=== PATIENT | male | born 1945 | race Caucasian/White ===

== ENCOUNTER 2022-03-29 09:09 | Emergency (ER) | payer OTHER ==
--- OUTSIDE RECORDS SUMMARY | 2022-03-29 09:15 | XMS REPORT | Continuity of Care Document ---
:1945 Author Organization [facility] t Address [address] [place] [address] Dr. Wilcox [address] [place] [id number] Care Team Providers Name Role Phone Unavailable Unavailable Unavailable Problems This patient has no known problems. Allergies, Adverse Reactions, Alerts This patient has no known allergies or adverse reactions. Medications This patient has no known medications. Procedures This patient has no known procedures. Results This patient has no known results.
[2022-03-29 09:47] LABS: Absolute Lymphocytes (CBC) 1.3 K/uL (0.7-4.9); Hematocrit 44.4 % (39.6-49.0); Lymphocytes % 17.5 % (15.3-44.8); MCV 93.7 fL (80-100); MPV 7.1 fL (7.6-11.3); RBC Red Blood Cell Count 4.73 M/uL (4.33-5.43)
[2022-03-29 09:57] LABS: Urine Blood 3+ (Negative); Urine Glucose Negative (Negative); Urine Protein 2+ (Negative); Urine pH 5.5 (5.0-7.0)
[2022-03-29 10:04] LABS: Albumin 3.6 g/dL (3.4-5.0); Bilirubin Total 0.5 mg/dL (0.2-1.0); Potassium 4.4 mmol/L (3.5-5.1)
[2022-03-29 10:08] LABS: Urine Bacteria None Seen /HPF (<20); Urine RBC >50 /HPF (None Seen)
--- NOTE | 2022-03-29 10:29 | RAD REPORT ---
EXAM DESCRIPTION: CT - Stone Protocol - 03/29/2022 10:20 am CLINICAL HISTORY: Flank pain. hematuria COMPARISON: No comparisons TECHNIQUE: Axial images were obtained without oral or IV contrast. Lack of contrast limits solid org an and vascular assessment. The [id number] spans the entirety of the system partially obscuring uppermost abdomen and lung bases. Coronal reformatted images were obtained and reviewed. All CT scans are performed using dose optimization technique as appropriate and may include automated exposure control or mA/KV adjustment according to patient size. FINDINGS: The lower lung castillo are clear. Imaged portions of the liver and spleen show no suspicious findings on non-contrast imaging. The panc reas and adrenal glands are normal. No pathologic lymphadenopathy in the abdomen or pelvis. No urinary tract stones or obstructive uropathy. No bowel obstruction, free air, free fluid or abscess. Normal appendix noted.32 mm infrarenal abdomin al aortic aneurysm. Moderate aortic and branch vessel atherosclerosis. No significant bony abnormality. 33 mm soft tissue mass along the right aspect of the urinary bladder is noted. IMPRESSION: There is a 33 cm soft tissue mass suspected on right posterolateral bladder wall likely neoplastic in etiology. Recommend follow-up cystoscopy.
[2022-03-29] MEDS ORDERED: CEFTRIAXONE 2000 MG/VIAL ONE (11:03)
--- NOTE | 2022-03-29 11:54 | ER ---
Nurse's Notes [facility] Name: Francisco Hyde Jr Age: 76 yrs Sex: Male : 1945 Arrival Date: 03/29/2022 Time: 09:13 Bed 7 Private MD: Balbir Aly Diagnosis: UTI/ Urinary tract infection, site not specified;Hematuria, unspecified;Bladder Mass Presentation: 03/29 09:21 Chief complaint: Blood in urine and suprapubic pain upon waking today. Coronavirus hb screen: At this time, the client does not indicate any symptoms associated with coronavirus-19. Ebola Screen: No symptoms or risks identified at this time. Initial Sepsis Screen: Does the patient meet any 2 criteria? No. Patient's initial sepsis screen is negative. Does the patient have a suspected source of infection? No. Patient's initial sepsis screen is negative. Risk Assessment: Do you want to hurt yourself or someone else? Patient reports no desire to harm self or others. Onset of symptoms was March 29, 2022. 09:21 Method Of Arrival: Ambulatory hb 09:21 Acuity: CHANEL 3 hb Historical: - Allergies: 09:22 PENICILLINS; hb - PMHx: 09:22 Hyperlipidemia; Hypertension; hb - Immunization history:: Adult Immunizations unknown. - Social history:: Smoking status: unknown. Screenin:28 [facility] ED Fall Risk Assessment (Adult) History of falling in the last 3 months, kc6 including since admission No falls in past 3 months (0 pts) Confusion or Disorientation No (0 pts) Intoxicated or Sedated No (0 pts) Impaired Gait No (0 pts) Mobility Assist Device Used No (0 pt) Altered Elimination No (0 pt) Score/Fall Risk Level 0 - 2 = Low Risk Oriented to surroundings, Maintained a safe environment, Educated pt \T\ family on fall prevention, incl call for assistance when getting out of bed, Assessed \T\ reinforced patient's understanding of fall precautions, Hourly rounding (assess needs \T\ fall precautionary measures) done. Abuse screen: Denies threats or abuse. Denies injuries from another. Nutritional screening: No deficits noted. Tuberculosis screening: No symptoms or risk factors identified. Assessment: 09:27 General: Appears in no apparent distress. comfortable, Behavior is calm, cooperative, kc6 appropriate for age. Pain: Denies pain. Neuro: [place] Agitation-Sedation Scale (RASS): 0 - Alert and Calm Level of Consciousness is awake, alert, obeys commands, Oriented to person, place, time, situation, Appropriate for age. Cardiovascular: Heart tones S1 S2 present Capillary refill < 3 seconds. Respiratory: Airway is patent Trachea midline Respiratory effort is even, unlabored, Respiratory pattern is regular, symmetrical, Breath sounds are clear bilaterally. GI: No signs and/or symptoms were reported involving the gastrointestinal system. : Reports blood in the urine. EENT: No signs and/or symptoms were reported regarding the EENT system. Derm: No signs and/or symptoms reported regarding the dermatologic system. Skin is intact, Skin is pink, warm \T\ dry. Musculoskeletal: No signs and/or symptoms reported regarding the musculoskeletal system. Circulation, motion, and sensation intact. Capillary refill < 3 seconds, Range of motion: intact in all extremities. 10:27 Reassessment: Patient appears in no apparent distress at this time. No changes from kc6 previously documented assessment. Patient and/or family updated on plan of care and expected duration. Pain level reassessed. Patient is alert, oriented x 3, equal unlabored respirations, skin warm/dry/pink. Patient denies pain at this time. 11:27 Reassessment: Patient appears in no apparent distress at this time. No changes from kc6 previously documented assessment. Patient and/or family updated on plan of care and expected duration. Pain level reassessed. Patient is alert, oriented x 3, equal unlabored respirations, skin warm/dry/pink. Patient denies pain at this time. Reassessment: Patient appears in no apparent distress at this time. No changes from previously documented assessment. Patient and/or family updated on plan of care and expected duration. Pain level reassessed. Patient is alert, oriented x 3, equal unlabored respirations, skin warm/dry/pink. Patient denies pain at this time. Vital Signs: 09:21 BP 166 / 72; Pulse 59; Resp 16; Temp 98.3; Pulse Ox 98% on R/A; Weight 59.87 kg; Height hb 5 ft. 6 in. (167.64 cm); Pain 1/10; 10:01 BP 168 / 91; Pulse 50; Resp 15; Pulse Ox 98% ; jl7 11:01 BP 147 / 59; Pulse 52; Resp 16 S; Pulse Ox 99% on R/A; Pain 0/10; kc6 12:01 BP 143 / 62; Pulse 49; Resp 18 S; Pulse Ox 99% on R/A; Pain 0/10; kc6 09:21 Body Mass Index 21.31 (59.87 kg, 167.64 cm) hb ED Course: 09:13 Patient arrived in ED. am2 09:14 Balbir Aly MD is Private Physician. am2 09:17 Basim Ortega PA is PHCP. jmm 09:17 David Peña MD is Attending Physician. jmm 09:19 Suma Tinajero, RN is Primary Nurse. kc6 09:22 Triage completed. hb 09:23 Arm band placed on. hb 09:28 Patient has correct armband on for positive identification. Bed in low position. Call kc6 light in reach. Side rails up X 1. Adult w/ patient. 09:41 CBC with Diff Sent. kc6 09:41 CMP Sent. kc6 09:41 Lipase Sent. kc6 09:41 Inserted saline lock: 20 gauge in right antecubital area, using aseptic technique. kc6 Blood collected. 09:54 Primary Nurse role handed off by Suma Tinajero, RN kc6 09:55 Suma Tinajero, RN is Primary Nurse. kc6 09:56 Urine Culture Sent. kc6 09:56 Urine Microscopic Only Sent. kc6 10:22 CT Stone Protocol In Process Unspecified. EDMS 11:54 Raj Cleary MD is Referral Physician. m 12:25 No provider procedures requiring assistance completed. IV discontinued, intact, kc6 bleeding controlled, No redness/swelling at site. Pressure dressing applied. Administered Medications: 11:08 Drug: Rocephin (cefTRIAXone) 2 grams Route: IV; Rate: calculated rate; Site: right kc6 antecubital; 12:25 Follow up: Response: No adverse reaction; IV Status: Completed infusion; IV Intake: [id number] Medication: 12:26 VIS not applicable for this client. kc6 Intake: 12:25 IV: 10ml; Total: 10ml. kc6 Outcome: 11:54 Discharge ordered by . jmm 12:25 Discharged to home ambulatory, with family, with significant other. kc6 12:25 Condition: stable 12:25 Discharge instructions given to patient, family, significant other, Instructed on discharge instructions, follow up and referral plans. medication usage, Demonstrated understanding of instructions, follow-up care, medications, Prescriptions given X 1. 12:26 Patient left the ED. kc6 Signatures: Dispatcher [employer] EDMS Basim Ortega PA PA jmm Baxter, Heather, RN RN hb Leal, Jahala, RN RN jl7 Manisha Wallis Kaitlyn, RN RN kc6
--- NOTE | 2022-03-29 11:55 | EDPHYS ---
Physician Documentation [facility] Name: Francisco Hyde Jr Age: 76 yrs Sex: Male : 1945 Arrival Date: 03/29/2022 Time: 09:13 Bed 7 Private MD: Balbir Aly ED Physician David Peña HPI: 03/29 09:28 This 76 yrs old Male presents to ER via Ambulatory with complaints of blood in urine. jmm 09:28 The patient presents with urinary symptoms. Onset: The symptoms/episode began/occurred jmm gradually, today. Modifying factors: The symptoms are alleviated by nothing, the symptoms are aggravated by nothing. This is a 76 year old male with a history of hlp, htn that presents to the ED with complaints of hematuria beginning today with some suprapubic abdominal pain. Denies fever, vomiting, back pain. . Historical: - Allergies: 09:22 PENICILLINS; hb - PMHx: 09:22 Hyperlipidemia; Hypertension; hb - Immunization history:: Adult Immunizations unknown. - Social history:: Smoking status: unknown. ROS: 09:28 Constitutional: Negative for fever, chills, and weight loss, Cardiovascular: Negative jmm for chest pain, palpitations, and edema, Respiratory: Negative for shortness of breath, cough, wheezing, and pleuritic chest pain. 09:28 Abdomen/GI: Positive for abdominal pain. 09:28 : Positive for urinary symptoms. 09:28 All other systems are negative. Exam: 09:28 Constitutional: This is a well developed, well nourished patient who is awake, alert, jmm and in no acute distress. Head/Face: atraumatic. Eyes: EOMI, no conjunctival erythema appreciated ENT: Moist Mucus Membranes Neck: Trachea midline, Supple Chest/axilla: Normal chest wall appearance and motion. Cardiovascular: Regular rate and rhythm. No edema appreciated Respiratory: Normal respirations, no respiratory distress appreciated 09:28 Skin: General appearance color normal MS/ Extremity: Moves all extremities, no obvious deformities appreciated, no edema noted to the lower extremities Neuro: Awake and alert Psych: Behavior is normal, Mood is normal, Patient is cooperative and pleasant 09:28 Abdomen/GI: Inspection: abdomen appears normal, Bowel sounds: normal, Palpation: soft, mild abdominal tenderness, in the suprapubic area. 09:28 Back: CVA tenderness, is absent, is noted bilaterally. Vital Signs: 09:21 BP 166 / 72; Pulse 59; Resp 16; Temp 98.3; Pulse Ox 98% on R/A; Weight 59.87 kg; Height hb 5 ft. 6 in. (167.64 cm); Pain 1/10; 10:01 BP 168 / 91; Pulse 50; Resp 15; Pulse Ox 98% ; jl7 11:01 BP 147 / 59; Pulse 52; Resp 16 S; Pulse Ox 99% on R/A; Pain 0/10; kc6 12:01 BP 143 / 62; Pulse 49; Resp 18 S; Pulse Ox 99% on R/A; Pain 0/10; kc6 09:21 Body Mass Index 21.31 (59.87 kg, 167.64 cm) hb MDM: 09:28 Patient medically screened. [facility] 11:53 Data reviewed: vital signs, nurses notes. Counseling: I had a detailed discussion with [facility] the patient and/or guardian regarding: the historical points, exam findings, and any diagnostic results supporting the discharge/admit diagnosis, lab results, radiology results, the need for outpatient follow up, to return to the emergency department if symptoms worsen or persist or if there are any questions or concerns that arise at home. 11:53 ED course: Patient is alert and non toxic in appearance in the ED. Patient given IV [facility] antibiotics. I discussed the patient with Dr. Cleary whom will follow up with the patient. Patient is otherwise given strict return precautions. patient understood and agrees with the plan of care. . 03/29 09:28 Order name: CBC with Diff; Complete Time: 09:59 [facility] 03/29 09:28 Order name: CMP; Complete Time: 10:09 [facility] 03/29 09:28 Order name: Lipase; Complete Time: 10:09 [facility] 03/29 09:28 Order name: Urine Microscopic Only; Complete Time: 10:23 [facility] 03/29 09:28 Order name: Urine Culture [facility] 03/29 09:57 Order name: Urine Dipstick-Ancillary; Complete Time: 09:59 [facility] 03/29 09:28 Order name: IV Saline Lock; Complete Time: 09:41 [facility] 03/29 09:28 Order name: Labs collected and sent; Complete Time: 09:41 [facility] 03/29 09:28 Order name: Urine Dipstick-Ancillary (obtain specimen); Complete Time: 09:56 [facility] 03/29 09:29 Order name: CT Stone Protocol; Complete Time: 10:38 [facility] Administered Medications: 11:08 Drug: Rocephin (cefTRIAXone) 2 grams Route: IV; Rate: calculated rate; Site: right kc6 antecubital; 12:25 Follow up: Response: No adverse reaction; IV Status: Completed infusion; IV Intake: [id number] Disposition: 15:10 Co-signature as Attending Physician, David Peña MD. rn Disposition Summary: 03/29/22 11:54 Discharge Ordered Location: Home [facility] Condition: Stable jm Diagnosis - UTI/ Urinary tract infection, site not specified jmm - Hematuria, unspecified jmm - Bladder Mass [facility] Followup: [facility] - With: Raj Cleary MD - When: 1 - 2 days - Reason: Recheck today's complaints, Continuance of care, Re-evaluation by your physician Discharge Instructions: - Discharge Summary Sheet jm - Hematuria, Adult jmm - Urinary Tract Infection, Adult jm - Bladder Cancer [facility] Forms: - Medication Reconciliation Form [facility] - Thank You Letter [facility] - Antibiotic Education [facility] - Prescription Opioid Use [facility] Prescriptions: - cefpodoxime 200 mg Oral Tablet - take 1 tablet by ORAL route every 12 hours with food; 20 tablet; Refills: 0, [facility] Product Selection Permitted Signatures: Dispatcher [employer] EDBasim Escalera PA PA David Melton MD MD rn Baxter, Heather, RN RN hb Campbell, Kaitlyn, RN RN kc6
[2022-03-29 13:07] VITALS: TEMP 98.3
[2022-03-29 13:09] VITALS: O2SAT 99
[2022-03-29 13:10] VITALS: BP 143/62
== END 2022-03-29 12:26 | disposition home or self-care (01) ==
LOC: ER 09:09
DX: N39.0 Urinary tract infection, site not specified (principal); N32.89 Other specified disorders of bladder; I10 Essential (primary) hypertension; E78.5 Hyperlipidemia, unspecified; Z88.0 Allergy status to penicillin
CPT/HCPCS: 96365; 87088; 85025; 87086; 36415; 83690; 80053; 76377; 74176; 99284; J0696; 81003; 81015

== ENCOUNTER 2022-05-05 11:25 | Observation (INO) | payer OTHER ==
[2022-04-23 11:51] LABS: Absolute Lymphocytes (CBC) 1.8 K/uL (0.7-4.9); Hematocrit 48.5 % (39.6-49.0); Lymphocytes % 21.5 % (15.3-44.8); MCV 94.9 fL (80-100); MPV 7.8 fL (7.6-11.3); Protime INR 1.06; RBC Red Blood Cell Count 5.11 M/uL (4.33-5.43)
--- NOTE | 2022-04-23 11:56 | RAD REPORT ---
EXAM DESCRIPTION: RAD - Chest Pa And Lat (2 Views) - 04/23/2022 11:34 am CLINICAL HISTORY: pre op for surgery COMPARISON: Portable 12/23/2012 TECHNIQUE: Frontal and lateral views of the chest were obtained. FINDINGS: The lungs are clear of a focal abnormality. Interstitial pattern not outside of normal ran ge. No hilar mass or lymphadenopathy suspected. Minimal scarring changes at each apex. Heart size is normal and central vasculature is within normal limits. No pleural effusion or pneu mothorax seen. No acute bony finding noted. No aortic abnormality. IMPRESSION: No acute cardiopulmonary process. No significant change from comparison study.
[2022-04-23 12:04] LABS: Potassium 3.9 mmol/L (3.5-5.1)
[~2022-05-05 11:25] MED LIST: CLINDAMYCIN 600MG/D5W 50 ML IV SCH; GEMCITABINE HCL 200 MG/5.26 ML VIAL IS ONE; GEMCITABINE HCL 26.3 ML IS ONE
[2022-05-05] MEDS ORDERED: Ringers Lactate 1,000 ML IV ONE (12:34)
[2022-05-05] MEDS ORDERED: LIDOCAINE 1% MPF 5 ML VIAL ONE (16:18)
[2022-05-05] MEDS ORDERED: MIDAZOLAM HCL 2 MG/2 ML INJ ONE ×2 (16:18→17:28)
[2022-05-05] MEDS ORDERED: FENTANYL CITR 100 MCG/2 ML ONE ×2 (16:18→17:15)
[2022-05-05] MEDS ORDERED: propofoL 200 MG/20 ML VIAL IV ONE (16:18)
[2022-05-05] MEDS ORDERED: ONDANSETRON 4 MG/2 ML VIAL ONE (16:22)
[2022-05-05] MEDS ORDERED: CODEINE 30MG/APAP 300MG TAB PO PRN ×2 (16:38→20:09)
[2022-05-05] MEDS ORDERED: PHENAZOPYRIDINE 100MG TAB PO ONE (16:38)
[2022-05-05] MEDS ORDERED: GLYCOPYRROLATE 0.2 MG/ML SYR ONE ×2 (16:39→17:28)
[2022-05-05] MEDS ORDERED: ROCURONIUM 50 MG/5 ML VIAL IV ONE ×2 (16:52→17:15)
[2022-05-05] MEDS ORDERED: EPHEDRINE SULF 50 MG/ML VIAL ONE (16:55)
[2022-05-05] MEDS ORDERED: dexAMETHasone 10 MG/ML VIAL ONE (17:20)
[2022-05-05] MEDS ORDERED: NEOSTIGMINE 1 MG/ML -10 ML VIAL ONE (17:31)
[2022-05-05] MEDS: Gentamicin Inj 140 MG in NA CHLORIDE 0.9% 100 ML IV SCH ×2 (17:39→17:41)
--- NOTE | 2022-05-05 17:54 | EKG ---
Test Date: 2022-04-23 Test Time: 11:17:04 Load Test Mechanic: VENKAT MEASUREMENT RESULTS: Intervals: Rate: 51 WI: 158 QRSD: 90 QT: 438 QTc: 403 Mutual: P: 79 WI: 158 QRS: 85 T: 85 INTERPRETIVE STATEMENTS: Sinus bradycardia Otherwise normal ECG Compared to ECG 12/23/2012 06:52:26 Sinus rhythm no longer present Electronically Signed On 05-05-22 17:31:20 [employer]ISION [employer]SEM[employer] INSPECTOR by Neal Rico
[2022-05-05] MEDS ORDERED: FLUMAZENIL 0.1 MG/ML (5 mL VIAL) IV ONE (17:58)
[2022-05-05] MEDS ORDERED: NALOXONE 0.4 MG/ML VIAL ONE ×2 (18:05→18:06)
[2022-05-05] MEDS ORDERED: SUCCINYLCHOLINE 20 MG/ML (10 ML) IV ONE (18:21)
--- NOTE | 2022-05-05 18:35 | OP ---
Surgeon: MALINDA GATICA Preoperative Diagnosis: Right lateral wall papillary urothelial neoplasm/bladder tumor. Postoperative Diagnosis: Right lateral wall papillary urothelial neoplasm/bladder tumor. Principal Procedures: 1. Transurethral resection of bladder tumor. 2. Insertion of urethral French catheter. 3. Intravesical instillation of gemcitabine 2 g in 50 cc normal saline, chemotherapy. Findings: Large 5-7 cm right lateral wall papillary urothelial neoplasm consistent with bladder cancer. Specimens: 1. Bladder tumor, right lateral wall. 2. Base of right lateral wall bladder tumor. Indication For Procedure: Mr. Hyde is a 77-year-old gentleman, who presented with gross hematuria and a 3.3 cm bladder mass suspected on CT confirmed cystoscopically 04/08/2022 in the setting of [id number] non-bothersome lower urinary symptoms, potentially due to BPH. He was counseled on the need for management of the large bladder tumor and recommended also to receive intravesical gemcitabine to reduce the risk of recurrence and reimplantation of the circulating tumor cells. Procedure In Detail: The patient was consented in the preoperative holding area before being transferred to operative suite where general anesthesia was induced. He was given clindamycin and gentamicin 2-3 mg/kg IV antimicrobial prophylaxis. Pneumo boots were provided for DVT prophylaxis. He was placed in the lithotomy position, padded and secured to the table appropriately. His genitalia were prepped with Hibiclens and he was draped in standard fashion. The case begun using urethral sounds to dilate the meatus and fossa navicularis to 30-Indian. Then, using the visual obturator and a 26-Indian bipolar resectoscope as well as a visual obturator, the scope was used to traverse the urethra and into the bladder with ease. The bladder was decompressed of fluid and urine, and the tumor was observed in the right lateral wall posteriorly as had previously been described. The remainder of the bladder was free of mucosal lesions, foreign body, or stone. The ureteral orifices were orthotopic in location. As a result, I began using a thin bipolar resection loop to resect the papillary component of the tumor, which was extensive as the tumor was approximately 5-7 cm in diameter, and resected it down to the base of the tumor which was covering an area of approximately 2-3 cm in diameter. Once the papillary component of the tumor had been removed and I was down to the base, I then tried to use as minimal cautery as possible to resect the tumor from the base muscular structures and the second set of resection was sent for pathologic analysis as base of tumor. I then carefully fulgurated the entirety of the base and resected additional nodular component of tissue that was just peripheral to the area of resection where the papillary tumor was growing suspecting a degree of submucosal tumor proliferation or induration. This was all sent as base of tumor. Once the resection was complete and the base completely fulgurated with no residual bleeding with bladder completely decompressed, I then irrigated his bladder and Ellik evacuated any remaining vesiculated tumor cells or tumor fragments and then placed a 20-Indian urethral French catheter with ease into his bladder with 25 cc of sterile water in the balloon. I decompressed his bladder and then retrograde instilled gemcitabine 2 g in 50 cc normal saline. He was then toweled off to prevent exposure of his surrounding genitalia and skin with the gemcitabine, and the catheter was connected to a leg bag while being clamped using a Olinda clamp. He was then taken out of the lithotomy position. While being awakened from general anesthesia, he failed to respond appropriately and had some involuntary appearing movements. Adequate consciousness was not obtained, and he was not respiring adequately on his own. As a result, continued mask ventilation was required, eventually transferred to repeat placement of the LMA, before eventually an endotracheal tube was placed. He was then transferred to a stretcher, and because of concern for CVA, he was transferred directly to the CT scanner for CT of the head/brain without contrast. Please see follow-up note/care for details before patient was ultimately transferred intubated to PACU. Complications: None. Discharge Disposition: He will maintain the chemotherapy intravesically for the next 60-90 minutes targeting a total of 90 minutes of therapy if possible. We will discharge him home with a catheter and recommend follow up on for a voiding trial in the Urology Clinic. He may also remove the catheter at home on morning at 7 a.m. and as long as he voids with ease by 1 p.m., he may avoid having to come to the office for a voiding trial. Subsequent followup should be established in about 2-3 weeks' time to discuss the results of the pathology and determine next steps. NUNO/MARIE Voice ID: [id number] Report ID: [id number] JOSE
--- NOTE | 2022-05-05 18:40 | RAD REPORT ---
EXAM DESCRIPTION: CT - Ct Stroke Brain Wo Cont - 05/05/2022 6:32 pm CLINICAL HISTORY: CVA- inappropriate responsiveness p anesthesia Headache, drowsiness COMPARISON: No comparisons TECHNIQUE: All CT scans are performed using dose optimization technique as appropriate and may inclu de automated exposure control or mA/KV adjustment according to patient size. FINDINGS: No intracranial hemorrhage, hydrocephalus or extra-axial fluid collection.No areas of brai n edema or evidence of midline shift. Superior sagittal sinus appears somewhat dense. The paranasal sinuses and mastoids are clear. The calvarium is intact. IMPRESSION: No acute hemorrhage, hydrocephalus or midline shift. Mild increased density superior sagittal sinus could be artifactual or related to thrombosis. Recomme nd CT angiogram of the head for further evaluation. The findings were discussed with Dr. Cleary On 05/05/2022 at 6:35 p.m. by telephone.
--- NOTE | 2022-05-05 18:52 | RAD REPORT ---
EXAM DESCRIPTION: CT - Head angio - 05/05/2022 6:45 pm CLINICAL HISTORY: UNRESPONSIVE Headache, drowsiness COMPARISON: Ct Stroke Brain Wo Cont dated 05/05/2022; Abdomen Exam Complete dated 01/31/2021; Neck An taylor dated 05/05/2022 TECHNIQUE: CT angiography of the head was performed with MIPs. All CT scans are performed using dose optimization technique as appropriate and may include automated exposure control or mA/KV adjustment according to patient size. FINDINGS: No evidence of large vessel occlusion. No evidence of aneurysm is detected. No flow-limiti ng stenosis or vascular malformation identified. Antegrade flow is seen in the vertebral arteries. The vertebral arteries are codominant. The visualized dural venous sinuses are patent. IMPRESSION: No significant flow abnormality is detected.
--- NOTE | 2022-05-05 18:54 | RAD REPORT ---
EXAM DESCRIPTION: CT - Neck Angio - 05/05/2022 6:45 pm CLINICAL HISTORY: UNRESPONSIVE Headache, drowsiness COMPARISON: No comparisons TECHNIQUE: CT angiography of the neck vessels was performed with MIPs. All CT scans are performed using dose optimization technique as appropriate and may include automated exposure control or mA/KV adjustment according to patient size. FINDINGS: The lower lung castillo are emphysematous. ET tube tip is not within the field scanning. A left aortic arch is identified with normal three vessel configuration of the great vessels. No significant flow abnormality is seen of the common carotid bilaterally. Moderate hard plaque is seen involving the carotid bulbs bilaterally. Carotid stenosis estimated at 7 0% on the left based on NASCET criteria. Carotid narrowing estimated at 50% on the right based on RITU CET criteria. Normal flow is seen within both vertebral arteries. IMPRESSION: Hard plaquing both carotid bulbs is moderate and results moderate stenosis bilaterally, slightly greater on the left. No additional significant flow abnormality seen.
[2022-05-05 19:31] LABS: Arterial Blood Carboxyhemoglob 0.9 % (0-1.5); Blood Gas Oxyhemoglobin 97.1 % (94-97); Blood O2 Saturation 99.4 % (92-98.5)
[2022-05-05 19:34] LABS: Absolute Lymphocytes (CBC) 1.7 K/uL (0.7-4.9); Hematocrit 47.3 % (39.6-49.0); Lymphocytes % 11.1 % (15.3-44.8); MCV 94.2 fL (80-100); MPV 7.3 fL (7.6-11.3); RBC Red Blood Cell Count 5.02 M/uL (4.33-5.43)
--- NOTE | 2022-05-05 19:34 | RAD REPORT ---
EXAM DESCRIPTION: RAD - Chest Single View - 05/05/2022 7:23 pm CLINICAL HISTORY: INTUBATED TUBE PLACEMENT Chest pain. COMPARISON: Chest Pa And Lat (2 Views) dated 04/23/2022; CHEST SINGLE VIEW dated 12/23/2012; CHEST SING LE VIEW dated 12/22/2012; Abdomen Pelvis W Contrast dated 04/03/2022 FINDINGS: Portable technique limits examination quality. Tip of the ET tube is above the joe at the level of the superior aortic arch. Mildly emphysematous lung castillo. No focal infiltrate seen.Cardiac size is upper limit of normal.
[2022-05-05 19:45] LABS: SARS-CoV-2 Antigen Rapid Res Negative (Negative)
[2022-05-05 19:52] LABS: Albumin 4.1 g/dL (3.4-5.0); Bilirubin Total 0.8 mg/dL (0.2-1.0); Potassium 4.5 mmol/L (3.5-5.1); Protein, Total 7.3 g/dL (6.4-8.2)
[2022-05-05] MEDS ORDERED: NA CHLORIDE 0.9% 1,000 ML IV SCH (20:05)
[2022-05-05] MEDS ORDERED: ONDANSETRON 4 MG/2 ML VIAL IV PRN (20:05)
[2022-05-05] MEDS ORDERED: LORazepam 2 MG/ML VIAL IV PRN (20:05)
[2022-05-05] MEDS ORDERED: propofoL 1,000 MG/100 ML VIAL IV SCH (20:05)
--- OUTSIDE RECORDS SUMMARY | 2022-05-05 20:06 | XMS REPORT | Continuity of Care Document ---
:[address] [facility] t Address [address] [place] [address] Care Team Providers Name Role Phone Balbir Aly Attending Clinician Unavailable Payers Payer Name Policy Type Policy Number Effective Date Expiration Date S cele [employer] MEDICARE 53 [id number] Common S pirit PPO [facility] Problems Condition Condition Condition Status Onset Resolution Last Treating Co mments Source Name Details Category Date Date Treatment Clinician Date [id number] Renal mass Problem Co mmon [facility] [id number] Bladder Problem Commo n mass [facility] [id number] BPH loc w Problem Com mon urin Spirit obs/LUTS [facility] [id number] Gross Problem Common hematuria [facility] Allergies, Adverse Reactions, Alerts Allergy Allergy Status Severity Reaction(s) Onset Inactive Treating Comm ents Source Name Type Date Date Clinician penicill penicill Active Unknown Commo n in V in V [facility] Social History Social Habit Start Date Stop Date Quantity Comments Source History of Tobacco Current Smoker Co mmon [facility] Use [facility] Sex Assigned At Com mon [facility] Smoking Status Start Date Stop Date Source Current Smoker 2022-04-08 00:00:00 Common Spiri t [facility] Medications Ordered Filled Start Stop Current Ordering Indication Dosage Frequency Signature Comments Components Source Medication Medication Date Date Medication? Clinician (SIG) Name Name No Known No Known No Common Medications Medications [facility] Vital Signs Vital Name Observation Time Observation Value Comments Source height 2022-04-08 15:00:00 66 [in_i] Common [facility] weight 2022-04-08 15:00:00 137.8 [lb_av] [facility] temperature 2022-04-08 15:00:00 98.6 [degF] Common [facility] bmi 2022-04-08 15:00:00 22.24 kg/m2 [facility] oximetry 2022-04-08 15:00:00 98 % [facility] respiratory rate 2022-04-08 15:00:00 16 /min Comm on [facility] blood pressure 2022-04-08 15:00:00 165 mm[Hg] [facility] systolic [facility] blood pressure 2022-04-08 15:00:00 77 mm[Hg] [facility] diastolic [facility] height 2022-04-01 10:15:00 66 [in_i] [facility] weight 2022-04-01 10:15:00 138.8 [lb_av] [facility] temperature 2022-04-01 10:15:00 98.2 [degF] [facility] bmi 2022-04-01 10:15:00 22.4 kg/m2 [facility] oximetry 2022-04-01 10:15:00 99 % [facility] respiratory rate 2022-04-01 10:15:00 18 /min Comm on [facility] blood pressure 2022-04-01 10:15:00 147 mm[Hg] [facility] systolic [facility] blood pressure 2022-04-01 10:15:00 70 mm[Hg] [facility] diastolic [facility] Procedures This patient has no known procedures. Encounters Start End Encounter Admission Attending Care Care Encounter Source Date/Time Date/Time Type Type Clinicians Facility Department ID 2022-04-01 Outpatient JLUIS Aly [facility] [id number] 2 Common 10:07:05 Balbir [id number] Spirit [facility] 2022-04-08 2022-04-08 [facility] [id number] Co mmon 00:00:00 00:00:00 VISIT Gui DE PAZ [facility] - [facility] LEVEL 4 [facility] 2022-04-01 2022-04-01 [facility] [id number] Co mmon 00:00:00 00:00:00 VISIT GINA [facility] PT LEVEL 3 - [facility] Results This patient has no known results.
[2022-05-05] MEDS ORDERED: propofoL 1,000 MG/100 ML VIAL IV ONE (20:21)
--- NOTE | 2022-05-05 20:29 | P.HP ---
Certification for Inpatient Patient admitted to: Inpatient With expected LOS: >2 Midnights Patient will require the following post-hospital care: None Practitioner: I am a practitioner with admitting privileges, knowledge of patient current condition, hospital course, and medical plan of care. Services: Services provided to patient in accordance with Admission requirements found in Title 42 Section 412.3 of the Code of Federal Regulations Patient History Date of Service: 05/05/22 Reason for admission: AMS History of Present Illness: 77-year-old male was brought to the hospital today for an outpatient procedure with urologyDnydia Cleary. He had a transurethral resection of bladder tumor, insertion of French catheter, intravesicular instillation of gemcitabine 2 g and 50 cc normal saline. Patient was found of a large 5 to 7 cm right lateral wall papillary urothelial neoplasm consistent with bladder cancer. Initial plan upon completion of procedure was for outpatient follow-up in urology clinic, voiding trial. After surgery was complete and patient was moved to PACU he was noted that he was not recovering from anesthesia as well as he should have been with increased sedation, not protecting his airway. He was brought down for stat CT of the head without contrast as well as CT head and neck angiogram. CT head showed mild increased density superior sagittal sinus could be artifactual or related to thrombosis recommend CT angiogram of the head for further evaluation. Head CTA showed no significant flow abnormality, CTA of the neck showed hard plaque in both carotid bulbs is moderate and results moderate stenosis bilaterally slightly greater on the left. No additional significant flow abnormality seen. Chest x-ray was also performed which showed the tip of the ET tube is above the joe at the level of the superior aortic arch mildly emphysematous lung castillo. No focal infiltrate, cardiac size is upper limit of normal. Given patient's slow recovery from anesthesia, decreased mentation urology wishes to admit patient for further evaluation and management/stroke rule out. Allergies Penicillins Allergy (Mild, Verified 05/05/22 13:04) Rash Home Medications: Aspirin Chewable [Aspirin Chewable*] 81 mg PO DAILY 12/22/12 Metoprolol Succinate [Toprol Xl*] 100 mg PO DAILY 12/22/12 Amlodipine Besylate 5 mg PO DAILY 04/23/22 Atorvastatin Calcium [Lipitor*] 20 mg PO DAILY 04/23/22 Latanoprost/Pf [Latanoprost 0.005% Eye Drop] 7.5 ml OP DAILY 04/23/22 Pantoprazole [Protonix Tab*] 40 mg PO DAILY 04/23/22 Spironolactone 1 tab PO BID 04/23/22 Codeine/APAP [Tylenol W/Codeine #3 tab] 1 tab PO Q6HP PRN #15 tab 05/05/22 - Past Medical/Surgical History Diabetic: No -: cataracts BL -: strabismus -: HTN -: CAD -: Hyperlipidemia -: tonsillectomy -: eye sx L -: Stent LAD 15 years ago Psychosocial/ Personal History: Patient lives at home with his - Family History Father -: Cancer - Social History Smoking Status: Current every day smoker (Smokes a pipe) Alcohol use: Yes CD- Drugs: No Caffeine use: Yes Place of Residence: Home Review of Systems is unable to be obtained (intubated) Physical Examination - Vital Signs Temperature: 97.4 F Blood Pressure: 137/58 Pulse: 55 Respirations: 20 - Physical Exam General: Alert, In no apparent distress, Oriented x3, Cooperative, Other (Intubated, on vent. Tracking with eyes, moves all extremities) HEENT: Atraumatic, PERRLA, Mucous membr. moist/pink, EOMI, Sclerae nonicteric Neck: Supple Respiratory: Clear to auscultation bilaterally, Normal air movement Cardiovascular: No edema, Regular rate/rhythm, Normal S1 S2 Capillary refill: <2 Seconds Gastrointestinal: Normal bowel sounds, No tenderness Musculoskeletal: No swelling, No tenderness Integumentary: No rashes Neurological: Normal speech, Normal tone, Sensation intact, Normal affect - Studies Laboratory Data (last 24 hrs) 05/05/22 19:24: Sodium 135 L, Potassium 4.5, BUN 12, Creatinine 0.98, Glucose 129 H, Total Bilirubin 0.8, AST 22, ALT 23, Alkaline Phosphatase 81 05/05/22 19:24: WBC 15.70 H, Hgb 15.9, Hct 47.3, Plt Count 286 Assessment and Plan - Plan Assessment: AMS/metabolic encephalopathy Rule out CVA History of CAD Hypertension Hyperlipidemia Plan: AMS/metabolic encephalopathy Altered mental status/increased sedation possibly related to effects of anesthesia. Patient mental status improving significantly at this time, remains on ventilator. Pulmonology consulted for weaning. Rule out CVA CT head without contrast as well as CTA head negative for acute findings, CT angio of the neck showed moderate carotid stenosis greater on the left. Additi onal work-up ordered including MRI, EEG, echocardiogram. Neurology consulted, PT/speech therapy consulted. Aspirin, statin ordered. History of CAD Continue aspirin. Hypertension Continue home medications once appropriate. Hyperlipidemia Continue home medications once appropriate. DVT PPX: Lovenox Code status: Full Discharge Plan: Home Plan to discharge in: 48 Hours - Advance Directives Does patient have a Living Will: No Does patient have a Durable POA for Healthcare: No - Code Status/Comfort Care Code Status Assessed: Yes (Full code) Critical Care: No Time Spent Managing Pts Care (In Minutes): 70
[2022-05-05 22:52] VITALS: BMI 22.0
--- NOTE | 2022-05-05 23:34 | P.PN ---
Date of Service: 05/05/22 77-year-old gentleman with CAD on baby aspirin s/p uncomplicated TURBT plus intravesical gemcitabine chemotherapy with delayed return of consciousness postoperative/post anesthesia with delayed adequate spontaneous respiratory capacity and abnormal movements concerning for possible cerebral process was reintubated after he failed to perspire adequately, and then transferred for CT scan of his head/brain. Review of the noncontrast CT scan revealed no evidence of hemorrhagic stroke or midline shift/herniation. CT angiogram was then recommended and completed without any acute vessel occlusion noted, though some carotid stenosis was indeed found. Patient subsequently transferred back to the PACU intubated and placed on a ventilator, but he became slightly more responsive and was able to breathe spontaneously with pressure support only. Over time, he became much more conscious and was alert and oriented to person. While strength was still deficient for instance in the left upper extremity relative to the right and in the right lower extremity relative to the left, all of these deficits resolved over the course of the next 1 to 2 hours after the patient was transferred to the ICU. He was subsequently extubated by the crown and bridge dental lab technician team, and I visited with him this evening where he was alert, awake, oriented and completely appropriate with normal movements of his facial muscles, ocular muscles, and extremities. Urethral French catheter in place with mostly clear with a tinge of pink urine observed only. Verbal consultation with Dr. Castellano, neurology, recommended consideration for MRI of the brain versus repeat CT angiogram tomorrow along with possible EEG evaluation. Given the patient's return to normal status without any deficits; I will leave it to Dr. Castellano, who agreed to see the patient in the morning, to determine if the above imaging is still recommended or required. Appreciate hospitalist and crown and bridge dental lab technician care and management.
[2022-05-06 05:00] LABS: Absolute Lymphocytes (CBC) 0.6 K/uL (0.7-4.9); Lymphocytes % 4.9 % (15.3-44.8); MCV 93.2 fL (80-100); MPV 7.4 fL (7.6-11.3); RBC Red Blood Cell Count 4.83 M/uL (4.33-5.43)
[2022-05-06 05:24] LABS: Albumin 3.3 g/dL (3.4-5.0); Bilirubin Total 0.6 mg/dL (0.2-1.0); Potassium 4.5 mmol/L (3.5-5.1); Protein, Total 6.1 g/dL (6.4-8.2); T4,Total 7.3 ug/dL (4.5-12.1); Thyroid Stimulating Hormone 0.534 uIU/mL (0.358-3.740)
[2022-05-06 05:34] LABS: Blood Morphology Comment NOT SEEN (NOT SEEN); Platelet Estimate ADEQ
[2022-05-06] MEDS ORDERED: PNEUMOCOCCAL VACCINE 0.5 ML IMVAC ONE (08:00)
--- NOTE | 2022-05-06 08:07 | RAD REPORT ---
EXAM DESCRIPTION: US - CP - 05/06/2022 12:24 am CLINICAL HISTORY: ams/cva COMPARISON: Neck Angio dated 05/05/2022 TECHNIQUE: Real-time sonographic grayscale, color duplex, and spectral wave Doppler evaluation of juju th carotid systems was performed. FINDINGS: Normal high resistance waveforms are noted in both external carotid arteries. The common c arotid arteries and internal carotid arteries show normal low resistance waveforms. Mild burden of smooth noncalcified isoechoic plaque seen at the right carotid bulb and mild hypoechoi c plaque seen along the distal right ICA. Mild burden of calcified echogenic smooth plaque noted at t he left carotid bulb. Peak systolic velocity less than 125 cm/ sec bilaterally. ICA/CCA peak systoli c ratios less than 2.0 bilaterally. Antegrade flow seen in both vertebral arteries. IMPRESSION: Mild burden of atherosclerotic atherosclerotic changes noted. Less than 50% stenosis bilaterally.
[2022-05-06 08:24] VITALS: O2SAT 97
[2022-05-06] MEDS ORDERED: ENOXAPARIN 40 MG/0.4 ML SQ SCH (09:00)
[2022-05-06] MEDS ORDERED: ASPIRIN EC 81 MG TAB PO SCH (09:00)
--- NOTE | 2022-05-06 12:04 | P.CNS ---
Date of Consult: 05/06/22 Reason for Consult: Vent management Chief Complaint: AMS History of Present Illness: Patient is 77 years of age he underwent an outpatient procedure transurethral resection of the bladder tumor /after surgery he was reintubated is felt that he could not protect his airway and was intubated brought here to the ICU count 8 PM the nurse called me said he was alert and responsive obeying commands hemodynamically stable and was extubated he did well all night there is no prior history of cardiopulmonary problem does smoke a pipe doing well currently Allergies Penicillins Allergy (Mild, Verified 05/05/22 13:04) Rash Home Medications: Aspirin Chewable [Aspirin Chewable*] 81 mg PO DAILY 12/22/12 Metoprolol Succinate [Toprol Xl*] 100 mg PO DAILY 12/22/12 Amlodipine Besylate 5 mg PO DAILY 04/23/22 Atorvastatin Calcium [Lipitor*] 20 mg PO DAILY 04/23/22 Latanoprost/Pf [Latanoprost 0.005% Eye Drop] 7.5 ml OP DAILY 04/23/22 Pantoprazole [Protonix Tab*] 40 mg PO DAILY 04/23/22 Spironolactone 1 tab PO BID 04/23/22 Codeine/APAP [Tylenol W/Codeine #3 tab] 1 tab PO Q6HP PRN #15 tab 05/05/22 - Past Medical/Surgical History Diabetic: No -: cataracts BL -: strabismus -: HTN -: CAD -: Hyperlipidemia -: tonsillectomy -: eye sx L -: Stent LAD 15 years ago Psychosocial/ Personal History: Patient lives at home with his - Family History Father Medical History: Cancer - Social History Smoking Status: Unknown if ever smoked Alcohol use: Yes CD- Drugs: No Caffeine use: Yes Place of Residence: Home Review of Systems 10-point ROS is otherwise unremarkable Physical Examination Temp Pulse Resp BP Pulse Ox 97.4 F 63 20 130/61 96 05/06/22 08:00 05/06/22 10:00 05/06/22 10:00 05/06/22 10:00 05/06/22 10:00 General: Alert, In no apparent distress, Oriented x3 Respiratory: Clear to auscultation bilaterally, Dull Cardiovascular: Normal pulses, Normal S1 S2 Gastrointestinal: Normal bowel sounds, Soft and benign Laboratory Data (last 24 hrs) 05/06/22 04:47: Sodium 138, Potassium 4.5, BUN 15, Creatinine 0.91, Glucose 155 H, Total Bilirubin 0.6, AST 21, ALT 25, Alkaline Phosphatase 75, Triglycerides 46, Cholesterol 115, HDL Cholesterol 44, Cholesterol/HDL Ratio 2.61 05/06/22 04:47: WBC 12.30 H, Hgb 15.0, Hct 45.0, Plt Count 281 05/05/22 19:24: Sodium 135 L, Potassium 4.5, BUN 12, Creatinine 0.98, Glucose 129 H, Total Bilirubin 0.8, AST 22, ALT 23, Alkaline Phosphatase 81 05/05/22 19:24: WBC 15.70 H, Hgb 15.9, Hct 47.3, Plt Count 286 - Problems (1) Altered mental status Current Visit: Yes Status: Acute Plan: Patient is 77 years of age underwent transurethral section of bladder tumor during recovery unable to wake him was then intubated transferred to the ICU and was almost immediately extubated labs reviewed mildly elevated white count vital signs oxygenation stable extensive scan showed mild carotid artery stenosis no evidence of stroke chest x-ray is clear possible stable for discharge
--- NOTE | 2022-05-06 14:32 | P.DS ---
Admission Date: 05/05/22 Discharge Date: 05/06/22 Disposition: ROUTINE DISCHARGE Discharge Condition: GOOD Reason for Admission: AMS Consultations: Urology - Dr. Cleary Neurology - Dr. Castellano Pulm - Dr. Mejia Brief History of Present Illness: 77-year-old male was brought to the hospital today for an outpatient procedure with urologyDr. Cleary. He had a transurethral resection of bladder tumor, i nsertion of French catheter, intravesicular instillation of gemcitabine 2 g and 50 cc normal saline. Patient was found of a large 5 to 7 cm right lateral wall papillary urothelial neoplasm consistent with bladder cancer. Initial plan upon completion of procedure was for outpatient follow-up in urology clinic, voiding trial. After surgery was complete and patient was moved to PACU he was noted that he was not recovering from anesthesia as well as he should have been with increased sedation, not protecting his airway. He was brought down for stat CT of the head without contrast as well as CT head and neck angiogram. CT head showed mild increased density superior sagittal sinus could be artifactual or related to thrombosis recommend CT angiogram of the head for further evaluation. Head CTA showed no significant flow abnormality, CTA of the neck showed hard plaque in both carotid bulbs is moderate and results moderate stenosis bilaterally slightly greater on the left. No additional significant flow abnormality seen. Chest x-ray was also performed which showed the tip of the ET tube is above the joe at the level of the superior aortic arch mildly emphysematous lung castillo. No focal infiltrate, cardiac size is upper limit of normal. Given patient's slow recovery from anesthesia, decreased mentation urology wishes to admit patient for further evaluation and management/stroke rule out. Hospital Course: Problem List AMS/metabolic encephalopathy secondary anesthesia History of CAD Hypertension Hyperlipidemia Patient had slow recovery from anesthesia. He was monitored overnight and did well. He was successfully extubated in the ICU without further complications. He underwent imaging and further examination by Neurology, without any acute findings. He was deemed stable for discharge home. Vital Signs/Physical Exam: Temp Pulse Resp BP Pulse Ox 97.4 F 63 20 130/61 96 05/06/22 08:00 05/06/22 10:00 05/06/22 10:00 05/06/22 10:00 05/06/22 10:00 General: Alert, In no apparent distress, Oriented x3 HEENT: EOMI, Sclerae nonicteric Neck: Supple, No LAD Respiratory: Clear to auscultation bilaterally, Normal air movement Cardiovascular: No edema, Regular rate/rhythm Gastrointestinal: Soft and benign, Non-distended, No tenderness Musculoskeletal: No contractures, No tenderness Integumentary: No rashes, No significant lesion Neurological: Normal speech, Normal affect Laboratory Data at Discharge: WBC 12.30 K/uL (4.3-10.9) H 05/06/22 04:47 Hgb 15.0 g/dL (13.6-17.9) 05/06/22 04:47 Hct 45.0 % (39.6-49.0) 05/06/22 04:47 Plt Count 281 K/uL (152-406) 05/06/22 04:47 PT 11.7 SECONDS (9.5-12.5) 04/23/22 11:26 INR 1.06 04/23/22 11:26 Sodium 138 mmol/L (136-145) 05/06/22 04:47 Potassium 4.5 mmol/L (3.5-5.1) 05/06/22 04:47 BUN 15 mg/dL (7-18) 05/06/22 04:47 Creatinine 0.91 mg/dL (0.70-1.30) 05/06/22 04:47 Glucose 155 mg/dL (74-106) H 05/06/22 04:47 Total Bilirubin 0.6 mg/dL (0.2-1.0) 05/06/22 04:47 AST 21 U/L (15-37) 05/06/22 04:47 ALT 25 U/L (16-61) 05/06/22 04:47 Alkaline Phosphatase 75 U/L (45-117) 05/06/22 04:47 Triglycerides 46 mg/dL (<150) 05/06/22 04:47 Cholesterol 115 mg/dL (<200) 05/06/22 04:47 HDL Cholesterol 44 mg/dL (40-60) 05/06/22 04:47 Cholesterol/HDL Ratio 2.61 05/06/22 04:47 Home Medications: Aspirin Chewable [Aspirin Chewable*] 81 mg PO DAILY 12/22/12 Metoprolol Succinate [Toprol Xl*] 100 mg PO DAILY 12/22/12 Amlodipine Besylate 5 mg PO DAILY 04/23/22 Atorvastatin Calcium [Lipitor*] 20 mg PO DAILY 04/23/22 Latanoprost/Pf [Latanoprost 0.005% Eye Drop] 7.5 ml OP DAILY 04/23/22 Pantoprazole [Protonix Tab*] 40 mg PO DAILY 04/23/22 Spironolactone 1 tab PO BID 04/23/22 Codeine/APAP [Tylenol W/Codeine #3 tab] 1 tab PO Q6HP PRN #15 tab 05/05/22 New Medications: Codeine/APAP [Tylenol W/Codeine #3 tab] 1 tab PO Q6HP PRN #15 tab PRN Reason: Pain Physician Discharge Instructions: PROBLEM: S/P Transurethral Bladder Tumor Resection GOAL: Clear understanding of disease process INSTRUCTIONS: Diet: AHA Activity: Ad amercio DME DME: Date Ordered: Name of Company: [employer] Services Needed: Name of Company: Date or Referral: IMMUNIZATION Influenza Vaccine Indicated: No Influenza Vaccine Given: Date Given: Pneumonia Vaccine Indicated: Yes Pneumonia Vaccine Given: Date Given: Follow up with Dr. Castellano (neurology), call office @[phone] Diet:AHA Activity:Ad americo PHYSICIAN'S DISCHARGE INSTRUCTIONS I have sent a prescription for Tylenol with codeine, which is a narcotic pain medication. If you do not have severe pain, you may instead take plain Tylenol/acetaminophen (up to 1000 mg every 6 hours maximum) and alternate this every 4 hours with Motrin/ibuprofen (up to 800 mg every 8 hours maximum) for mild to moderate pain. You may have visible blood in the urine, which is common. A small amount of blood will turn the urine light pink (pink lemonade or even cranberry juice colored). When the blood becomes old and oxidized this, will make the urine appear dark and Erik iced tea colored. All of this is expected and of no significant concern. It would be concerning if you developed bright red and thick blood in the urine with clots (appearing like tomato juice). You should notify me immediately should this occur or perhaps seek emergency department evaluation. Notify me if you develop any fever (temperature greater than 100.4 Fahrenheit), intractable nausea or vomiting, increasing pain not controlled by pain medications, or other unusual signs or symptoms. Contact my office to arrange to have the catheter removed on in my office. Alternatively, we can teach you how to remove the catheter at home on morning promptly at 7 AM. If you are unable to urinate with ease by 1 PM, you should come to my office for evaluation before 3 PM at the latest. Also schedule follow-up in 2-3 weeks to discuss the results of the pathology. All the best! WBR Diet: AHA Activity: Ad americo Followup: Husam Castellano MD [ASSOCIATE-ACTIVE - CAN ADMIT] - Alvarado Oseguera DO [Primary Care Provider] - Raj Cleary [ACTIVE - CAN ADMIT] - Time spent managing pt's care (in minutes): 45
[2022-05-06 14:43] VITALS: TEMP 97.8
[2022-05-06 16:10] VITALS: BP 122/60
[2022-05-06] MEDS ORDERED: ATORVASTATIN 40 MG TAB PO SCH (21:00)
--- NOTE | 2022-05-06 22:07 | CON ---
Reason For Consultation: Consultation called because the patient was slow to recover from general an esthesia after a urological surgical procedure. History Of Present Illness: Mr. Hyde is a 77-year-old patient who had a transurethral rese ction of a bladder tumor and intravesicular instillation of gentamicin. The procedure was completed successfully by Dr. Cleary; however, the patient was not waking up following anesthesia and Neurolog y was consulted to rule out possibility of stroke. He did have a head CT scan that showed no acute i schemic or hemorrhagic findings. CT angiogram of his neck also showed hard plaque in both carotid bu lbs, moderate in consistency with moderate stenosis. However, there was no additional significant fl ow abnormalities identified. CT angiogram of his head showed no significant abnormalities. Carotid artery ultrasound showed mild less than 50% stenosis bilaterally. The patient initially after surger y in the evening again was not returning to his baseline after anesthesia; however, by the early morn ing hours, that is this morning, he was able to wake up and began to respond appropriately and actual ly returned to his baseline with no focal neurological deficits that is new. The patient and his wif e report he has "strabismus." The patient has had a long history of the left eye turning outward and has had surgery that was unsuccessful in the past. He denies additional issues with his cranial ner ves. However, after my evaluation and further questioning, the patient and his did report he byrd s had issues with his right leg in particular that may appear to jump excessively when pressing on sa y the brake pedal or even at night when turning in bed. He denies loss of balance or incoordination due to this. Past Medical History: Strabismus, hypertension, coronary artery disease, and dyslipidemia. Past Surgical History: Tonsillectomy, bilateral cataract surgery, left eye surgery, and left anterio r descending coronary artery stent 15 years ago. Social History: Denies alcohol, tobacco, or IV drug use. The patient lives at home with . Family History: Cancer in father. Allergies: PENICILLIN. Medications: At home are aspirin 81 mg daily, Toprol 100 mg daily, amlodipine 5 mg daily, Lipitor 20 mg daily, Latanoprost 0.005% eyedrops bilaterally daily, Protonix 40 mg daily, spironolactone 1 tabl et twice daily, and Tylenol 3 every 6 hours as needed. Review of Systems: The patient prior to coming in reports issues with his bladder function related to cancer and the iss ue of the excessive movements to the lower extremities, especially on the right, but he denies loss o f balance and ambulates without an assistive device. Physical Examination: Vital Signs: Blood pressure 122/60, pulse 61, respiratory rate 16, temperature 97.8, and oxygen satu ration 97%. General: Mr. Hyde is resting comfortably in bed in the ICU. He is not intubated. He is breathing o n his own independently. HEENT: He is normocephalic, atraumatic. 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 He does have diplopia as he tries to look towards the left and right. Otherwise, his cranial nerves are intact. He has full strength in upper and lower extrem ities, 5/5 proximally and distally. Sensory exam shows mild stocking-glove loss to light touch and t emperature. However, reflexes are pathologic with 4+ at the patella and 2 to 3 beats of clonus at juju th ankles. He does have mild Antonino's in the upper extremities. In terms of his gait, he was able to ambulate 100 feet with standby assistance to contact guard assistance. He held onto the IV pole as he ambulated. Assessment: Mr. Hyde is a 77-year-old patient who had a prolonged period of recovery from anesthesia that was general and he has actually recovered well and he is doing very well. He has a chronic lef t eye issue identified as strabismus and he has marked hyperreflexia involving the lower extremity mo re than upper extremities and suggestive of possibility of a cord related issue that is in the cervic al region. His CT scan of the head shows no acute ischemic or hemorrhagic change. Plan: The patient may be discharged home. He should follow up with Dr. Castellano for MRI of the cerv ical spine to rule out possibility of cervical spinal stenosis. It should be noted the patient and h is reports that the ongoing problem with his leg "being bouncy" has been slowly progressive for over a year. He was advised to be cautious and if need be ambulate with an assistive device such as a cane. In any event, he will follow up with Dr. Castellano in clinic for further evaluation. REBECA/MARIE Voice ID: [id number] Report ID: [id number]
== END 2022-05-06 15:30 | disposition home or self-care (01) ==
LOC: OR 11:25 → INTOOBSV 19:54 → 3RD-ICU 19:54
PROVIDERS: ADMIT Hospitalist; ATTEND Hospitalist
PROC: 3E0K805 Introduction of Other Antineoplastic into Genitourinary Tract, Via Natural or Artificial Opening Endoscopic (ICD-10-PCS; 2022-05-05)
PROC: 0T9B70Z Drainage of Bladder with Drainage Device, Via Natural or Artificial Opening (ICD-10-PCS; 2022-05-05)
PROC: 3E0K705 Introduction of Other Antineoplastic into Genitourinary Tract, Via Natural or Artificial Opening (ICD-10-PCS; 2022-05-05)
PROC: 0TBB8ZX Excision of Bladder, Via Natural or Artificial Opening Endoscopic, Diagnostic (ICD-10-PCS; principal; 2022-05-05 12:30)
DX: C67.2 Malignant neoplasm of lateral wall of bladder (principal); N32.89 Other specified disorders of bladder; R31.0 Gross hematuria; R41.82 Altered mental status, unspecified; I10 Essential (primary) hypertension; I25.10 Atherosclerotic heart disease of native coronary artery without angina pectoris; E78.5 Hyperlipidemia, unspecified; H50.9 Unspecified strabismus; F17.210 Nicotine dependence, cigarettes, uncomplicated; R29.2 Abnormal reflex; Z88.0 Allergy status to penicillin; Z80.9 Family history of malignant neoplasm, unspecified
CPT/HCPCS: 52240; 51720; 93005; 87088; 85025 ×3; 87086; 80048; 36415 ×3; 85610; 80061; 88307; 84436; 84443; 80053 ×2; 70496; 70498; 70450; 71045; 71046; 93880; 97116; 97161; 97530; 94002; 82805; 87811; G0379; Q9967; J2704 ×2; J2710; J2310 ×2; J0330; J2001; J1580; J1650; J2250 ×2; J3010 ×2; J1100; J9201; J7120; J7030; J2405; G0378 ×2; 88305

== ENCOUNTER → 2022-06-09 | Day surgery (SDC) | payer OTHER ==
[~2022-06-09] MED LIST changes: -CLINDAMYCIN 600MG/D5W 50 ML IV SCH; +DIAZEPAM 5 MG TABLET ONE; -GEMCITABINE HCL 200 MG/5.26 ML VIAL IS ONE; +LIDOCAINE JELLY 2% 5 ML SYRINGE TOP ONE; +oxyBUTYnin chloride 5 MG TAB ONE
[2022-06-09 08:29] LABS: Specific Gravity 1.015 (1.005-1.030); Urine Bacteria None Seen /HPF (<20); Urine Bilirubin NEGATIVE (Negative); Urine Blood Negative (Negative); Urine Clarity Clear (Clear); Urine Color Light-Yellow (Yellow); Urine Glucose NEGATIVE (Negative); Urine Mucus Slight /HPF (None Seen); Urine Protein NEGATIVE (Negative); Urine RBC <5 /HPF (None Seen); Urine Urobilinogen Normal (Normal); Urine WBC Clump Rare /HPF (None Seen); Urine pH 5.5 (5.0-7.0)
[2022-06-09 09:05] VITALS: BP 121/56; TEMP 98.4; O2SAT 96; BMI 21.1
--- NOTE | 2022-06-09 11:06 | P.OP ---
Preoperative diagnosis: Ta low-grade urothelial carcinoma, inverted/endophytic growth pattern Postoperative diagnosis: Same Primary procedure: Intravesical gemcitabine 2 g and 50 cc normal saline Secondary procedure: Insertion of urethral French catheter Anesthesia: Lidocaine Uro-Jet Operative Technique: 77-year-old gentleman status post TURBT 05/05/2021 revealing moderate volume low- grade noninvasive urothelial carcinoma of the bladder with focal inverted/endophytic growth pattern. He received perioperative gemcitabine, and he was counseled on the potential benefit to an induction course of gemcitabine intravesical chemotherapy. He has elected to proceed. He presents today for the first of 6 of an induction series of gemcitabine intravesical. Procedure note: The patient was consented and placed supine on the day surgery t able. His genitalia was prepped with Betadine and draped in standard fashion. Lidocaine Uro-Jet was applied intraurethrally for local anesthesia. A 16 English French catheter was placed via his urethra into his bladder with ease. The bladder was decompressed of fluid and urine after 10 cc of sterile water was placed in the balloon. The patient's genitalia was then toweled off using blue towels and draped with a fluid impermeable drape. The catheter was brought through a hiatus made in the drape, and a face shield was applied to the patient. 2 g of gemcitabine in 50 cc normal saline, total volume approximately 52 cc, was retrograde instilled into his bladder with ease. He tolerated the instillation well and without complication. The fluid was clamped within his bladder and the catheter was connected to a leg bag for ease of subsequent contained decompression. He was then allowed to rotate by one quarter turn every 15 minutes over the course of the next 60 minutes targeting a total of 90 minutes of total installation. In the end, the chemotherapy was evacuated from within his bladder, and the catheter was removed. He was discharged from the clinic in good condition. Complications: None Drain(s): Urinary catheter Condition: Good
== END ==
LOC: DS 07:58
PROVIDERS: ATTEND Urology
PROC: 3E0K705 Introduction of Other Antineoplastic into Genitourinary Tract, Via Natural or Artificial Opening (ICD-10-PCS; principal; 2022-06-09)
DX: R31.0 Gross hematuria (principal); C67.9 Malignant neoplasm of bladder, unspecified
CPT/HCPCS: 87088; 81001; 87086; 96365; 96366; 51720; J9201

== ENCOUNTER 2023-01-13 11:03 | Emergency (ER) | payer OTHER ==
[2023-01-13] MEDS ORDERED: NA CHLORIDE 0.9% 0 ML ONE (11:40)
[2023-01-13 11:46] LABS: Absolute Lymphocytes (CBC) 1.8 K/uL (0.7-4.9); Hematocrit 38.9 % (39.6-49.0); MPV 6.7 fL (7.6-11.3); Platelets 522 thou/uL (152-406); RBC Red Blood Cell Count 4.23 M/uL (4.33-5.43)
[2023-01-13] MEDS ORDERED: NA CHLORIDE 0.9% 1,000 ML ONE (12:15)
[2023-01-13 12:33] LABS: Potassium 4.7 mEq/L (3.5-5.1)
--- NOTE | 2023-01-13 12:39 | ER ---
Nurse's Notes [facility] Name: Francisco Hyde Jr Age: 77 yrs Sex: Male : 1945 Arrival Date: 01/13/2023 Time: 11:03 Bed 17 Private MD: Balbir Aly Diagnosis: Palpitations Presentation: 01/13 11:19 Chief complaint: Patient states: "I was sitting at home and felt like my heart rate got mb9 high, in the 80s. I got a little dizzy and my BP was elevated as well." Pt denies CP/SOB. Coronavirus screen: Vaccine status: Patient reports receiving the 2nd dose of the covid vaccine. Ebola Screen: No symptoms or risks identified at this time. Initial Sepsis Screen: Does the patient meet any 2 criteria? No. Patient's initial sepsis screen is negative. Does the patient have a suspected source of infection? No. Patient's initial sepsis screen is negative. Risk Assessment: Do you want to hurt yourself or someone else? Patient reports no desire to harm self or others. Onset of symptoms was January 13, 2023. 11:19 Method Of Arrival: Wheelchair mb9 11:19 Acuity: CHANEL 3 mb9 Triage Assessment: 11:21 General: Appears in no apparent distress. Behavior is cooperative, appropriate for age. mb9 Pain: Denies pain. EENT: No deficits noted. Neuro: [place] Agitation-Sedation Scale (RASS): 0 - Alert and Calm Level of Consciousness is awake, alert, obeys commands, Oriented to person, place, time, situation, Appropriate for age Reports dizziness. Cardiovascular: Denies chest pain, shortness of breath, Patient's skin is warm and dry. Respiratory: Airway is patent. GI: No signs and/or symptoms were reported involving the gastrointestinal system. : No signs and/or symptoms were reported regarding the genitourinary system. Derm: Skin is pink, warm \\T\\ dry. Musculoskeletal: Range of motion: intact in all extremities. Historical: - Allergies: 11:18 PENICILLINS; mb9 - PMHx: 11:18 Hyperlipidemia; Hypertension; Bladder cancer; Tachycardia; mb9 - PSHx: 11:18 Stented artery; mb9 - Immunization history:: Adult Immunizations up to date. - Social history:: Smoking status: Patient reports the use of cigarette tobacco products, cigars. Screenin:40 [facility] ED Fall Risk Assessment (Adult) History of falling in the last 3 months, ph including since admission No falls in past 3 months (0 pts) Confusion or Disorientation No (0 pts) Intoxicated or Sedated No (0 pts) Impaired Gait No (0 pts) Mobility Assist Device Used No (0 pt) Altered Elimination No (0 pt) Score/Fall Risk Level 0 - 2 = Low Risk Oriented to surroundings, Maintained a safe environment, Provided non-skid footwear, Hourly rounding (assess needs \\T\\ fall precautionary measures) done. Abuse screen: Denies threats or abuse. Denies injuries from another. Nutritional screening: No deficits noted. Tuberculosis screening: No symptoms or risk factors identified. Assessment: 11:19 General: Appears in no apparent distress. comfortable, well groomed, Behavior is calm, ph cooperative, appropriate for age. Pain: Denies pain. Neuro: Level of Consciousness is awake, alert, obeys commands, Oriented to person, place, time, situation. Cardiovascular: Denies chest pain, lightheadedness, shortness of breath, Capillary refill < 3 seconds in bilateral fingers Patient's skin is warm and dry. Rhythm is sinus rhythm. Respiratory: Airway is patent Respiratory effort is even, unlabored, Respiratory pattern is regular, symmetrical. GI: No signs and/or symptoms were reported involving the gastrointestinal system. Derm: Skin is pink, warm \\T\\ dry. Vital Signs: 11:19 BP 157 / 61; Pulse 76; Resp 18; Temp 98; Pulse Ox 100% on R/A; Weight 57.15 kg; Height mb9 5 ft. 7 in. ; 12:34 BP 126 / 57; Pulse 59; Resp 18; Pulse Ox 100% on R/A; ph 11:19 Body Mass Index 19.73 (57.15 kg, 170.18 cm) mb9 ED Course: 11:05 Patient arrived in ED. mr 11:05 Balbir Aly MD is Private Physician. mr 11:07 Liam Miaer MD is Attending Physician. ec2 11:11 Rebekah Mccracken, RN is Primary Nurse. ph 11:18 Arm band placed on. mb9 11:21 Triage completed. mb9 11:22 EKG done, by ED staff, reviewed by Liam Maier MD. mb9 11:39 Basic Metabolic Panel Sent. ph 11:39 CBC with Diff Sent. ph 11:39 Troponin HS Sent. ph 11:39 Initial lab(s) drawn, by me, sent to lab. Inserted saline lock: 20 gauge in right ph antecubital area, using aseptic technique. Blood collected. 11:40 Patient has correct armband on for positive identification. Placed in gown. Bed in low ph position. Call light in reach. Side rails up X 1. Client placed on continuous cardiac and pulse oximetry monitoring. NIBP monitoring applied. Door closed. Noise minimized. Warm blanket given. 11:40 No provider procedures requiring assistance completed. ph 12:51 IV discontinued, intact, bleeding controlled, No redness/swelling at site. Pressure ph dressing applied. Administered Medications: 12:05 Drug: NS 0.9% IV 1000 ml IV at 1 bolus Per protocol; 1000 mL bolus Route: IV; Rate: 1 ph bolus; Site: left antecubital; 12:55 Follow up: Response: No adverse reaction; IV Status: Completed infusion; IV Intake: ph 1000ml Medication: 11:40 VIS not applicable for this client. ph Intake: 12:55 IV: 1000ml; Total: 1000ml. ph Outcome: 12:38 Discharge ordered by . ec2 12:51 Discharged to home ambulatory, with significant other, ph 12:51 Condition: good 12:51 Discharge instructions given to patient, Instructed on discharge instructions, follow up and referral plans. Demonstrated understanding of instructions, follow-up care, 12:52 Patient left the ED. ph Signatures: Jovanna Saldivar, Reg Reg Rebekah Holloway RN RN ph Breneman, Mary Beth, BILL KHAN mb9 Liam Maier MD MD ec2
--- NOTE | 2023-01-13 12:39 | EDPHYS ---
Physician Documentation [facility] Name: Francisco Hyde Jr Age: 77 yrs Sex: Male : 1945 Arrival Date: 01/13/2023 Time: 11:03 Bed 17 Private MD: Balbir Aly ED Physician Liam Maier HPI: 01/13 11:17 This 77 yrs old Male presents to ER via Unassigned with complaints of ec2 Tachycardia. 11:17 Patient arrives today due to concern for feeling unwell. States that he checked his ec2 heart rate and blood pressure and they were elevated for his baseline. States typically has a heart rate in the 50s and his heart rate was in the low 70s and subsequently grew concerned and came to the ED. Patient reports no chest pain, no abdominal pain, shortness of breath, no nausea or vomiting or diarrhea. States that he has a history of previous palpitations with associated hypokalemia.. Historical: - Allergies: 11:18 PENICILLINS; mb9 - PMHx: 11:18 Hyperlipidemia; Hypertension; Bladder cancer; Tachycardia; mb9 - PSHx: 11:18 Stented artery; mb9 - Immunization history:: Adult Immunizations up to date. - Social history:: Smoking status: Patient reports the use of cigarette tobacco products, cigars. ROS: 11:17 Constitutional: as per hpi ec2 Exam: 11:17 Constitutional: GEN: NAD Head: atraumatic Eyes: EOMI Ears: External ears are ec2 normal. CV: regular rate LUNGS: no respiratory distress ABD: non-distended, soft, nontender, no guarding, not rigid SKIN: no evidence of rashes MSK: no evidence of trauma NEURO: moves all extremities equally Vital Signs: 11:19 BP 157 / 61; Pulse 76; Resp 18; Temp 98; Pulse Ox 100% on R/A; Weight 57.15 kg; Height mb9 5 ft. 7 in. ; 12:34 BP 126 / 57; Pulse 59; Resp 18; Pulse Ox 100% on R/A; ph 11:19 Body Mass Index 19.73 (57.15 kg, 170.18 cm) mb9 MDM: 11:08 Patient medically screened. ec2 11:17 ED course: Patient arrives today due to concern for abnormal vital signs. Examination ec2 remarkable for well-appearing nontoxic individual who has reassuring vital signs with reassuring pulse rate and reassuring blood pressure. Will obtain lab work, EKG, chest x-ray and give the patient a liter of crystalloids. Currently: Considering electrolyte disturbances, arrhythmia, anemia.. 11:19 ED course: EKG independently reviewed and interpreted by me, shows normal sinus rhythm, ec2 rate of 65, no acute ST segment elevations, no evidence of arrhythmia, nonconcerning intervals. . 12:38 ED course: Metabolic profile is pertinent for reassuring electrolytes with reassuring ec2 potassium. No evidence of significant renal abnormalities, troponin within normal ranges. On reassessment patient remains with reassuring vital signs and no evidence of tachycardia. Will discharge home, return precautions given. . 12:38 Data reviewed: vital signs. ec2 01/13 11:17 Order name: Basic Metabolic Panel; Complete Time: 12:37 ec2 01/13 11:17 Order name: CBC with Diff; Complete Time: 11:49 ec2 01/13 11:17 Order name: Troponin HS; Complete Time: 12:37 ec2 01/13 11:17 Order name: EKG; Complete Time: 11:17 ec2 01/13 11:17 Order name: Cardiac monitoring; Complete Time: 11:20 ec2 01/13 11:17 Order name: EKG - Nurse/Tech; Complete Time: 11:20 ec2 01/13 11:17 Order name: IV Saline Lock; Complete Time: 11:39 ec2 01/13 11:17 Order name: Labs collected and sent; Complete Time: 11:39 ec2 01/13 11:17 Order name: O2 Per Protocol; Complete Time: 11:20 ec2 01/13 11:17 Order name: O2 Sat Monitoring; Complete Time: 11:20 ec2 01/13 11:52 Order name: Labs - recollect needed: please recollect green top; Complete Time: 12:04 em1 Administered Medications: 12:05 Drug: NS 0.9% IV 1000 ml IV at 1 bolus Per protocol; 1000 mL bolus Route: IV; Rate: 1 ph bolus; Site: left antecubital; 12:55 Follow up: Response: No adverse reaction; IV Status: Completed infusion; IV Intake: ph 1000ml Disposition Summary: 01/13/23 12:38 Discharge Ordered Notes: Location: Home ec2 Condition: Stable ec2 Diagnosis - Palpitations ec2 Discharge Instructions: - Discharge Summary Sheet ec2 - Palpitations ec2 Forms: - Medication Reconciliation Form ec2 - Thank You Letter ec2 - Antibiotic Education ec2 - Prescription Opioid Use ec2 - Patient Portal Instructions ec2 - Leadership Thank You Letter ec2 Signatures: Dispatcher [employer] Yuri Conner em1 Rebekah Mccracken RN RN Jovanna Barron RN RN mb9 Liam Maier MD MD ec2 Corrections: (The following items were deleted from the chart) 11:58 11:17 Chest Single View+[email or web address] ordered. EDNH EDMS
--- NOTE | 2023-01-14 08:00 | EKG ---
Test Date: 2023-01-13 Test Time: 11:16:21 Qc Manager: PH MEASUREMENT RESULTS: Intervals: Rate: 65 AL: 156 QRSD: 90 QT: 398 QTc: 413 [place]: P: 71 AL: 156 QRS: 75 T: 75 INTERPRETIVE STATEMENTS: Normal sinus rhythm Normal ECG Compared to ECG 04/23/2022 11:17:04 Sinus bradycardia no longer present Electronically Signed On 01-14-23 07:57:48 CDT by Neal Rico
[2023-01-14 15:51] VITALS: BP 126/57; TEMP 98; O2SAT 100
== END 2023-01-13 12:52 | disposition home or self-care (01) ==
LOC: ER 11:03
DX: R00.2 Palpitations (principal); R00.0 Tachycardia, unspecified; E78.5 Hyperlipidemia, unspecified; I10 Essential (primary) hypertension; Z72.0 Tobacco use; Z88.0 Allergy status to penicillin
CPT/HCPCS: 85025; 80048; 36415; 84484; J7030; 93005